=== PATIENT | female | born 1945 | race Two or more races ===

== ENCOUNTER 2017-09-13 05:39 | Day surgery (SDC) | payer OTHER ==
[2017-09-13] MEDS ORDERED: CEFAZOLIN 1 GM INJ (07:00)
[2017-09-13] MEDS ORDERED: PROPOFOL 40 ML (07:52)
[2017-09-13] MEDS ORDERED: FENTAnyl 50 MCG/ML VIAL (07:52)
[2017-09-13] MEDS ORDERED: LIDOCAINE 2% (SDV) 5 ML INJ (07:52)
[2017-09-13] MEDS: LIDOCAINE 1% (MPF) 30 ML INJ (07:57)
[2017-09-13] MEDS ORDERED: LIDOCAINE 1% (MPF) 30 ML INJ (08:04)
[2017-09-13] MEDS ORDERED: FENTAnyl 50 MCG/ML VIAL IV ×2 (08:30)
[2017-09-13] MEDS ORDERED: DIPHENHYDRAMINE 50 MG INJ IV (08:30)
[2017-09-13] MEDS ORDERED: METOCLOPRAMIDE 10 MG INJ IV (08:30)
[2017-09-13] MEDS ORDERED: HYDROmorphONE (0.2 MG/ML) 10ML SYG IV (08:30)
[2017-09-13] MEDS: MEPERIDINE 25 MG INJ IV (09:30)
[2017-09-13] MEDS: ONDANSETRON 4 MG INJ IV (09:30)
[2017-09-13] MEDS: HYDROmorphONE (0.2 MG/ML) 10ML SYG IV (09:30)
== END 2017-09-13 12:12 | disposition home or self-care (01) ==
LOC: SDS 05:39
DX: I87.2 Venous insufficiency (chronic) (peripheral) (principal); I83.028 Varicose veins of left lower extremity with ulcer other part of lower leg; L97.929 Non-pressure chronic ulcer of unspecified part of left lower leg with unspecified severity; I83.812 Varicose veins of left lower extremity with pain; E11.9 Type 2 diabetes mellitus without complications; Z79.4 Long term (current) use of insulin; E78.5 Hyperlipidemia, unspecified; I10 Essential (primary) hypertension
CPT/HCPCS: 37765; 82962; 88304